=== PATIENT | female | born 1945 | race Caucasian/White ===

== ENCOUNTER 2021-06-21 13:06 | Outpatient (CLI) | payer MEDICARE ==
[2021-06-21] MEDS ORDERED: GADOTERATE 10 MMOL/20 ML VIAL ONE (16:35)
== END 2021-06-21 23:59 | disposition home or self-care (01) ==
LOC: RAD 13:06 → EDSTATUS 13:30 → RAD 23:59
PROVIDERS: ATTEND Nurse Practitioner Family
DX: R26.89 Other abnormalities of gait and mobility (principal)
CPT/HCPCS: 70544; 70549; 70553; A9575